=== PATIENT | female | born 1940 | race Caucasian/White ===

== ENCOUNTER → 2016-07-05 | Outpatient (CLI) | payer OTHER ==
--- NOTE | 2016-07-05 14:54 | MA ---
Diagnostic Digital Right Mammogram History: Evaluate microcalcifications and nodular density in the central right breast. Comparison: Screening mammogram June 07, 2016 and 2009. Technique: 3 spot magnification views and a true lateral view of the right breast. Breast Density: C, moderate Findings: A nodular density in the central right breast is likely stable since 2009 as are the microc alcifications associated with it. Microcalcifications in the outer right breast are more dispersed on the current magnification lateral view. There are scattered other fibrocystic type calcifications th roughout the visualized portion of the right breast. Impression: Benign calcifications right breast.. Benign nodule right breast. BI-RADS: Category 2 . Benign. Recommendation: Return to screening mammography of both breasts in 1 year. Results and recommendation were communicated to the patient at the time of the examination.
== END ==
LOC: FIMAGING 14:13
DX: R92.1 Mammographic calcification found on diagnostic imaging of breast (principal); N63 Unspecified lump in breast
CPT/HCPCS: G0206

== ENCOUNTER → 2016-12-24 | Outpatient (CLI) | payer OTHER | LOC: CIMAGING 14:07 | PROVIDERS: ATTEND Physician Assistant Medical | DX: R93.8 Abnormal findings on diagnostic imaging of other specified body structures (principal); D25.9 Leiomyoma of uterus, unspecified | CPT/HCPCS: 76856-PO ==